=== PATIENT | female | born 1995 | race Caucasian/White ===

== ENCOUNTER 2019-11-09 09:22 | Emergency (ER) | payer OTHER, SELFPAY ==
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
[2019-11-09 12:09] VITALS: TEMP 98.3
[2019-11-09 12:10] VITALS: O2SAT 100
[2019-11-09 12:11] VITALS: BP 121/67
== END 2019-11-09 12:01 | disposition home or self-care (01) ==
LOC: ER 09:22
DX: S02.2XXA Fracture of nasal bones, initial encounter for closed fracture (principal); Y04.8XXA Assault by other bodily force, initial encounter; Y93.9 Activity, unspecified; Y92.9 Unspecified place or not applicable; F17.210 Nicotine dependence, cigarettes, uncomplicated
CPT/HCPCS: 70450; 70486; 72125; 76377; 99283